=== PATIENT | male | born 1945 | race Caucasian/White ===

== ENCOUNTER 2022-11-01 13:12 | Emergency (ER) | payer OTHER, MEDICARE ==
[2022-11-01] MEDS ORDERED: Furosemide 40 MG/4 ML VIAL IVPUSH ONE (13:40)
[2022-11-01] MEDS ORDERED: Sodium Chloride 0.9% 10 ML Syringe FLUSH PRN (13:40)
[2022-11-01 14:20] LABS: ANION GAP 7.9 meq/L (7-15); CHLORIDE,CL 104 mmol/L (98-107); ESTIMATED GFR 61 mL/min (>=60); SODIUM,NA 138 mmol/L (136-145)
== END 2022-11-01 16:00 | disposition home or self-care (01) ==
LOC: LL.ED 13:12
DX: I13.0 Hypertensive heart and chronic kidney disease with heart failure and stage 1 through stage 4 chronic kidney disease, or unspecified chronic kidney disease (principal); E11.22 Type 2 diabetes mellitus with diabetic chronic kidney disease; N18.9 Chronic kidney disease, unspecified; I50.9 Heart failure, unspecified; I48.91 Unspecified atrial fibrillation; I25.10 Atherosclerotic heart disease of native coronary artery without angina pectoris; J44.9 Chronic obstructive pulmonary disease, unspecified; K21.9 Gastro-esophageal reflux disease without esophagitis; M19.90 Unspecified osteoarthritis, unspecified site; Z87.891 Personal history of nicotine dependence; E66.9 Obesity, unspecified; Z88.8 Allergy status to other drugs, medicaments and biological substances; Z79.02 Long term (current) use of antithrombotics/antiplatelets; Z79.82 Long term (current) use of aspirin; Z79.899 Other long term (current) drug therapy
CPT/HCPCS: 36415; 71046; 80053; 83735; 83880; 85025; 96374; 99284; 99285-25; J1940; J3490